=== PATIENT | female | born 1955 | race Caucasian/White ===

== ENCOUNTER 2016-11-22 01:17 | Emergency (ER) | payer OTHER ==
[~2016-11-22] VITALS: Ht 154.9 cm; Wt 59.9 kg
[2016-11-22] MEDS ORDERED: LISINOPRIL20 MG PO (01:26)
[2016-11-22] MEDS ORDERED: NATURE-THROI48.75 MG PO (01:27)
[2016-11-22] MEDS ORDERED: PREMARIN1.25 MG PO (01:28)
== END 2016-11-22 03:22 | disposition home or self-care (01) ==
LOC: ED 01:17
DX: K52.9 Noninfective gastroenteritis and colitis, unspecified (principal); I10 Essential (primary) hypertension; E03.9 Hypothyroidism, unspecified; F17.200 Nicotine dependence, unspecified, uncomplicated; Z88.0 Allergy status to penicillin; Z79.899 Other long term (current) drug therapy
CPT/HCPCS: 80053; 83690; 85025; 96361; 96374; 99283; J2405; J7030; J7040